=== PATIENT | female | born 1960 | race African-American/Black ===

== ENCOUNTER 2024-10-27 07:33 | Emergency (ER) | payer MEDICAID ==
[~2024-10-27] VITALS: Ht 154.9 cm; Wt 63.5 kg
[2024-10-27 09:12] VITALS: BP 167/81
== END 2024-10-27 09:22 | disposition home or self-care (01) ==
LOC: ED 07:33
DX: H81.10 Benign paroxysmal vertigo, unspecified ear (principal); I10 Essential (primary) hypertension; C85.90 Non-Hodgkin lymphoma, unspecified, unspecified site